=== PATIENT | male | born 1950 | race Caucasian/White ===

== ENCOUNTER 2019-12-26 08:49 | Emergency (ER) | payer MEDICARE ==
[~2019-12-26] VITALS: Ht 188 cm; Wt 85.0 kg
[2019-12-26] MEDS ORDERED: ketorolac tromethamine 15mg/ml inj. IM ONE (10:20)
[2019-12-26] MEDS ORDERED: HYDR-4383 PO (10:31)
[2019-12-26 10:41] VITALS: BP 115/71
== END 2019-12-26 10:45 | disposition home or self-care (01) ==
LOC: ER 08:50
DX: S76.311A Strain of muscle, fascia and tendon of the posterior muscle group at thigh level, right thigh, initial encounter (principal); M25.561 Pain in right knee; Z98.890 Other specified postprocedural states; Z88.5 Allergy status to narcotic agent; Z79.899 Other long term (current) drug therapy; X58.XXXA Exposure to other specified factors, initial encounter; Y93.89 Activity, other specified; Y92.89 Other specified places as the place of occurrence of the external cause; Y99.8 Other external cause status
CPT/HCPCS: 96372; 99283; J1885